=== PATIENT | female | born 1990 | race Caucasian/White ===

== ENCOUNTER → 2020-10-06 | Outpatient (CLI) | payer BC ==
--- NOTE | 2020-10-09 13:48 | USB ---
Reason for exam: clinical finding. Physical Findings: Nurse did not find any significant physical abnormalities on exam. US Breast Limited LT Technologist: Matilda Hammer Left limited breast ultrasound including focal area of concern, retroareolar and axilla demonstrates a 1.1 x 1.0 x 0.3cm benign lymph node at 2 o'clock. These results were verbally communicated with the patient and result sheet given to the patient on 10/06/20. ASSESSMENT: Benign, BI-RAD 2 RECOMMENDATION: Clinical management of the left breast. Manage patient on a clinical basis.
== END | disposition home or self-care (01) ==
LOC: RADUSWWP 09:40
PROVIDERS: ATTEND Obstetrics & Gynecology
DX: N64.4 Mastodynia (principal)

== ENCOUNTER 2021-03-01 12:11 | Emergency (ER) | payer BC ==
[2021-03-01 12:20] VITALS: BP 128/75; PULSE 84; RESP 18; TEMP 98.3
[2021-03-01] MEDS ORDERED: RABIES IMMUNE GLOB 300 UNIT/ML 1 ML VIAL IM ONE (12:52)
[2021-03-01] MEDS ORDERED: RABIES VACCINE (PCEC) 2.5 UNIT KIT IM ONE (12:52)
[2021-03-01] MEDS ORDERED: RABIES IMMUNE GLOB 300 UNIT/ML 5 ML VIAL IM ONE (13:00)
--- NOTE | 2021-03-01 13:27 | ED ---
General Adult HPI - General Chief complaint: Recheck/Abnormal Lab/Rx Stated complaint: InQuicker/Rabies Shot Time Seen by Provider: 03/01/21 12:32 Source: patient Mode of arrival: ambulatory Limitations: no limitations - History of Present Illness Initial comments: 30-year-old female presents for rabies exposure. Patient states that she had at that and her house. No known bites. However she read online she probably should get the rabies vaccine. No other symptoms or complaints.Patient has no other complaints at this time including shortness of breath, chest pain, abdominal pain, nausea or vomiting, headache, or visual changes. - Related Data Allergies Allergy/AdvReac Type Severity Reaction Status Date / Time azithromycin Allergy Rash/Hives Verified 03/01/21 12:20 sulfamethoxazole Allergy Nausea & Verified 03/01/21 12:20 [From Bactrim] Vomiting trimethoprim [From Bactrim] Allergy Nausea & Verified 03/01/21 12:20 Vomiting Review of Systems ROS Statement: Those systems with pertinent positive or pertinent negative responses have been documented in the HPI. ROS Other: All systems not noted in ROS Statement are negative. Past Medical History Past Medical History: No Reported History History of Any Multi-Drug Resistant Organisms: None Reported Past Surgical History: No Surgical Hx Reported Past Psychological History: No Psychological Hx Reported Smoking Status: Vaper Past Alcohol Use History: Occasional Past Drug Use History: None Reported General Exam Limitations: no limitations General appearance: alert Head exam: Present: atraumatic Eye exam: Present: normal appearance, PERRL, EOMI ENT exam: Present: normal exam, mucous membranes moist Neck exam: Present: normal inspection, full ROM. Absent: tenderness Respiratory exam: Present: normal lung sounds bilaterally. Absent: respiratory distress, wheezes Cardiovascular Exam: Present: regular rate, normal rhythm, normal heart sounds Course Vital Signs 03/01/21 12:17 Temperature 98.3 F Pulse Rate 84 Respiratory 18 Rate Blood Pressure 128/75 O2 Sat by Pulse 100 Oximetry Medical Decision Making - Medical Decision Making Patient was given first rabies series here in the emergency room. Will return for further immunizations. Will follow up with primary care. Disposition Clinical Impression: Need for rabies vaccination Disposition: HOME SELF-CARE Condition: Good Instructions (If sedation given, give patient instructions): Rabies Vaccine (ED) Additional Instructions: Please continue your rabies series as directed: 03/04/2021 03/08/2021 03/15/2021 Return to the emergency room for any worsening symptoms. Follow-up with primary care. Is patient prescribed a controlled substance at d/c from ED?: No Referrals: Gloria Kenny MD [Primary Care Provider] - 1-2 days Time of Disposition: 13:25
== END 2021-03-01 13:50 | disposition home or self-care (01) ==
LOC: EC 12:11
DX: F17.290 Nicotine dependence, other tobacco product, uncomplicated (principal); Z20.3 Contact with and (suspected) exposure to rabies; Z23 Encounter for immunization; Z88.1 Allergy status to other antibiotic agents; Z88.2 Allergy status to sulfonamides
CPT/HCPCS: 90375; 90471; 90675; 96372; 99281

== ENCOUNTER 2022-01-29 17:39 | Inpatient (IN) | payer BC ==
[2022-01-29] MEDS ORDERED: CARBOPROST TROMETHAMINE 250 MCG/ML 1 ML AMP IM PRN (18:53)
[2022-01-29] MEDS ORDERED: OXYTOCIN 10 UNIT/ML 1 ML VIAL IM PRN (18:53)
[2022-01-29] MEDS ORDERED: TERBUTALINE 1 MG/ML VIAL SQ PRN (18:53)
[2022-01-29] MEDS ORDERED: METHYLERGONOVINE 0.2 MG/ML 1 ML AMP IM PRN (18:53)
[2022-01-29] MEDS ORDERED: LIDOCAINE 0.5% (PF) 5 MG/ML (50 ML SDV) SQ PRN (18:53)
[2022-01-29] MEDS: LACTATED RINGERS 1,000 ML IV SCH (18:58)
[2022-01-29 19:06] LABS: Basophils # (A) 0.1 k/uL (0-0.2); Basophils % (A) 0 %; Eosinophils # (A) 0.2 k/uL (0-0.7); Eosinophils % (A) 1 %; HCT 34.2 % (34.0-46.0); HGB 11.6 gm/dL (11.4-16.0); Lymphocytes # (A) 2.3 k/uL (1.0-4.8); Lymphocytes % (A) 17 %; MCH 29.3 pg (25.0-35.0); MCHC 34.1 g/dL (31.0-37.0); Mean Platelet Volume 8.3; Monocytes # (A) 0.6 k/uL (0-1.0); Monocytes % (A) 4 %; Neutrophils # (A) 10.3 k/uL (1.3-7.7); Neutrophils % (A) 74 %; Platelet Count 307 k/uL (150-450); RBC 3.97 m/uL (3.80-5.40); RDW 13.1 % (11.5-15.5); WBC 13.8 k/uL (3.8-10.6)
[2022-01-29] MEDS: CALCIUM CARBONATE 500 MG CHEWABLE PO PRN (21:27)
[2022-01-30] MEDS: BUTORPHANOL 1 MG/ML 1 ML VIAL IV PRN ×2 (01:22→03:52)
[2022-01-30] MEDS: LACTATED RINGERS 1,000 ML IV SCH (01:24)
[2022-01-30] MEDS ORDERED: OXYTOCIN 30 UNITS/500 ML NS 30 UNIT in SALINE 1 500ML.BAG IV SCH ×2 (04:00→09:30)
[2022-01-30] MEDS: CALCIUM CARBONATE 500 MG CHEWABLE PO PRN (04:02)
[2022-01-30] MEDS ORDERED: ROPIVACAINE 100 MG, fentaNYL (PF). 200 MCG in SODIUM CHLORIDE 0.9% 76 ML EPIDURAL ONE (06:01)
[2022-01-30] MEDS ORDERED: PENICILLIN G POTASSIUM 5,000,000 UNIT in DEXTROSE 5% IN WATER 100 ML IVPB STA ×2 (06:53)
--- NOTE | 2022-01-30 08:46 | P.HPOB ---
History of Present Illness H&P Date: 01/30/22 Chief Complaint: 39-6/7 weeks, spontaneous rupture of membranes Patient is a 31-year-old 1 para 0 who presented at 39-6/7 weeks with documented spontaneous rupture of membranes of. She presented with her cervix 1 cm dilated, thick, and high. Her was essentially otherwise uncomplicated though she is Rh- and received RhoGAM at 28 weeks and is also known to be rubella nonimmune. She additionally had Covid during the and had reassuring testing weekly after 32 weeks. Group B strep status is negative. On labor and delivery, all signs reassuring with a category 1 heart rate tracing. Overnight she made progress into the active phase of labor and now has an epidural catheter in place and progressed rapidly to complete. Obstetrical history: 1 para 0 with current statistics listed in history present illness. EDC of 01/30/2022 was established by last menstrual period and confirmed by second trimester ultrasound. Laboratory workup demonstrates a blood type of B- with a negative antibody screen. Rubella status is nonimmune the remainder of the laboratory workup was within normal limits. One hour Glucola was within normal limits and group B strep status is negative. Gynecologic history: Unremarkable with no history of any infections to include STDs. Review of Systems Review of systems is confined to history of present illness. Past Medical History Past Medical History: No Reported History History of Any Multi-Drug Resistant Organisms: None Reported Past Surgical History: No Surgical Hx Reported Additional Past Surgical History / Comment(s): cyst removed from tail bone 2016 Past Anesthesia/Blood Transfusion Reactions: Postoperative Nausea & Vomiting (PONV) Past Psychological History: No Psychological Hx Reported Smoking Status: Never smoker Past Alcohol Use History: Occasional Past Drug Use History: None Reported - Past Family History Father History Unknown: Yes Medications and Allergies Home Medications Medication Instructions Recorded Confirmed Type Ferrous Sulfate [Feosol] 325 mg PO DAILY 01/29/22 01/29/22 History Vit No.179/Iron/Folic 1 each PO DAILY 01/29/22 01/29/22 History [ Tablet] Allergies Allergy/AdvReac Type Severity Reaction Status Date / Time azithromycin Allergy Rash/Hives Verified 01/29/22 17:53 sulfamethoxazole Allergy Nausea & Verified 01/29/22 17:53 [From Bactrim] Vomiting trimethoprim [From Bactrim] Allergy Nausea & Verified 01/29/22 17:53 Vomiting Exam Vital Signs Temp Pulse Resp BP Pulse Ox 01/29/22 18:59 97.8 F 96 16 122/78 98 01/29/22 17:59 97.6 F 96 16 122/78 97 Intake and Output 01/29/22 01/30/22 01/30/22 22:59 06:59 14:59 Other: # Voids 5 3 Weight 108.409 kg In general, this is a well-developed, well-nourished white female in no acute distress. Her heart has a regular rhythm and rate without murmur. Her lungs clear to auscultation bilaterally in all jamil. Her abdomen is gravid, nondistended, has normal active bowel sounds, soft, nontender, and without any palpable masses aside from uterine fundus. Her extremities without any cyanosis, clubbing, or edema and are nontender to palpation bilaterally. Digital cervical examination this morning demonstrates her surgery completely dilated with the vertex in presentation at +2 station. Spontaneous rupture of membranes had been documented at the time of admission. Results Result Diagrams: 01/29/22 18:50 Abnormal Lab Results - Last 24 Hours (Table) 01/29/22 Range/Units 18:50 WBC 13.8 H (3.8-10.6) k/uL Neutrophils # 10.3 H (1.3-7.7) k/uL Assessment and Plan (1) Spontaneous rupture of amniotic membranes Current Visit: Yes Status: Acute Code(s): IXW4303 - SNOMED Code(s): 983165368 (2) Active labor at term Current Visit: Yes Status: Acute Code(s): ART7324 - SNOMED Code(s): 46628824 Plan: The patient is admitted for close maternal and surveillance. She initially had no interventions to allow labor to regress on its own. She had Pitocin augmentation begun in the middle of the night and progressed to 3-4 cm meters which time an epidural catheter was placed for analgesia. She has now progressed to complete and has begun pushing. We would anticipate a normal vaginal delivery in the near term. She will continue to have close maternal and surveillance. Antibiotic prophylaxis had been started when she was 3-4 cm as she was approximately 12 hours ruptured.
[2022-01-30] MEDS ORDERED: diphenhydrAMINE 50 MG/ML 1 ML VIAL IVP PRN ×2 (09:20)
[2022-01-30] MEDS ORDERED: ZOLPIDEM 5 MG TAB PO PRN (09:20)
[2022-01-30] MEDS ORDERED: HYDROCORTISONE 2.5% RECTAL CREAM 30 GM TUBE RECTAL PRN (09:20)
[2022-01-30] MEDS ORDERED: SIMETHICONE 80 MG CHEWABLE PO PRN (09:20)
[2022-01-30] MEDS ORDERED: BENZOCAINE/MENTHOL SPRAY 1 GM/SPRAY AEROSOL TOPICAL PRN (09:20)
[2022-01-30] MEDS ORDERED: MEASLES-MUMPS-RUBELLA VACC/PF 12,500 UNIT/0.5 ML VIAL SQ ONE (09:20)
[2022-01-30] MEDS ORDERED: HYDROcodone/APAP 5-325MG 1 EACH TAB PO PRN (09:20)
[2022-01-30] MEDS ORDERED: diphenhydrAMINE 50 MG CAP PO PRN (09:20)
[2022-01-30] MEDS ORDERED: diphenhydrAMINE 25 MG CAP PO PRN (09:20)
[2022-01-30] MEDS ORDERED: LANOLIN CREAM 5 GM TUBE TOPICAL PRN (09:20)
[2022-01-30] MEDS ORDERED: HYDROcodone/APAP 7.5-325MG 1 EACH TAB PO PRN (09:20)
--- NOTE | 2022-01-30 09:23 | P.PROBDLV ---
Vaginal Delivery Note - . Vaginal Delivery Note: The patient is a 31-year-old 1 para 0 admitted at 39-6/7 weeks, now 40- 0/7 weeks by good dating parameters. She is admitted with documented spontaneous rupture of membranes in early labor. On labor and delivery, all signs are reassuring with a category 1 heart rate tracing. She had no intervention for the first 6-8 hours at which time she had Pitocin augmentation started. She then progressed to approximate 3-4 cm this morning at which time an epidural catheter was placed for analgesia. She then progressed very rapidly from 4 cm to complete over the course of approximately 1-1/2 hours. She pushed over the course of approximately 15-20 minutes to a normal spontaneous vaginal delivery of a viable 6 lbs. 9 oz. baby girl with Apgars of 9 at 1 minute and 9 at 5 minutes delivered in the left occiput anterior position. The placenta was delivered spontaneously, intact, and grossly normal with a grossly normal three- vessel cord inserted proximally 47 m from the margin of the placental disc. There was a fairly significant left vaginal sulcus tear extending into the left labia which was repaired in standard fashion using 3-0 chromic catgut without difficulty. All sponge, instrument, and needle counts were correct. Estimated blood loss for the case was approximate 400 mL. There were no complications. All sponge, instrument, and needle counts were correct. Both mother and are resting comfortably in recovery.
[2022-01-30] MEDS: IBUPROFEN 600 MG TAB PO PRN ×2 (10:05→16:11)
[2022-01-30] MEDS ORDERED: PENICILLIN G POTASSIUM 2,500,000 UNIT in DEXTROSE 5% IN WATER 100 ML IVPB SCH ×2 (11:00)
[2022-01-30] MEDS: ACETAMINOPHEN TAB 325 MG TAB PO PRN (20:18)
[2022-01-30] MEDS: SENNOSIDES-DOCUSATE SODIUM 1 EACH TAB PO SCH (20:19)
[2022-01-31] MEDS: IBUPROFEN 600 MG TAB PO PRN ×4 (01:06→20:12)
[2022-01-31] MEDS: ACETAMINOPHEN TAB 325 MG TAB PO PRN ×3 (05:26→18:29)
[2022-01-31 06:28] LABS: Basophils # (A) 0.1 k/uL (0-0.2); Basophils % (A) 0 %; Eosinophils # (A) 0.2 k/uL (0-0.7); Eosinophils % (A) 2 %; HCT 24.5 % (34.0-46.0); Lymphocytes # (A) 2.6 k/uL (1.0-4.8); Lymphocytes % (A) 20 %; MCH 27.5 pg (25.0-35.0); MCHC 31.7 g/dL (31.0-37.0); Mean Platelet Volume 8.7; Monocytes # (A) 0.7 k/uL (0-1.0); Monocytes % (A) 5 %; Neutrophils # (A) 9.2 k/uL (1.3-7.7); Neutrophils % (A) 71 %; Platelet Count 232 k/uL (150-450); RBC 2.82 m/uL (3.80-5.40); RDW 13.1 % (11.5-15.5); WBC 13.1 k/uL (3.8-10.6)
[2022-01-31 06:43] LABS: HGB 7.8 gm/dL (11.4-16.0)
[2022-01-31] MEDS: SENNOSIDES-DOCUSATE SODIUM 1 EACH TAB PO SCH ×2 (07:44→20:13)
[2022-01-31 08:01] VITALS: RESP 18
--- NOTE | 2022-01-31 08:23 | P.PNOBGVD ---
Subjective - Subjective Principal diagnosis: day 1 Interval history: Ambulating and voiding without difficulty. Having some discomfort on vaginally but improved from yesterday. Patient reports: Reports appetite normal, Reports voiding normally, Reports ambulating normally, Denies pain well controlled : doing well Objective - Latest Vital Signs Latest vital signs: Vital Signs Temp Pulse Resp BP Pulse Ox 01/31/22 07:45 97.9 F 79 18 104/54 98 01/31/22 00:00 98.5 F 89 16 113/61 97 01/30/22 20:00 98.0 F 70 16 110/70 97 01/30/22 16:00 98.2 F 87 16 122/58 01/30/22 11:20 102 H 16 127/59 01/30/22 10:50 98.3 F 110 H 15 135/70 01/30/22 10:20 93 16 119/64 01/30/22 10:05 97 16 117/60 01/30/22 09:50 98 15 123/64 01/30/22 09:35 113 H 17 126/60 01/30/22 09:20 118 H 16 143/74 Intake and Output 01/30/22 01/31/22 01/31/22 22:59 06:59 14:59 Other: Voiding Method Toilet - Exam Extremities: Present: normal. Absent: edema Abdomen: Present: normal appearance, soft. Absent: tenderness Uterus: Present: normal, firm. Absent: tenderness - Labs Labs: Abnormal Lab Results - Last 24 Hours (Table) 01/31/22 Range/Units 06:03 WBC 13.1 H (3.8-10.6) k/uL RBC 2.82 L (3.80-5.40) m/uL Hgb 7.8 L D (11.4-16.0) gm/dL Hct 24.5 L (34.0-46.0) % Neutrophils # 9.2 H (1.3-7.7) k/uL Assessment and Plan (1) Active labor at term Current Visit: Yes Status: Acute Code(s): OSK7921 - SNOMED Code(s): 98155711 (2) Rh negative status during Current Visit: Yes Status: Acute Code(s): O26.899 - OTH RELATED CONDITIONS, UNSPECIFIED TRIMESTER; Z67.91 - UNSPECIFIED BLOOD TYPE, RH NEGATIVE SNOMED Code(s): 004591347 (3) Rubella non-immune status, antepartum Current Visit: Yes Status: Acute Code(s): O09.899 - SUPERVISION OF OTHER HIGH RISK PREGNANCIES, UNSP TRIMESTER; Z28.39 - OTHER UNDERIMMUNIZATION STATUS SNOMED Code(s): 704609556 (4) Spontaneous rupture of amniotic membranes Current Visit: Yes Status: Acute Code(s): OUX0625 - SNOMED Code(s): 446703402 (5) Normal spontaneous vaginal delivery Current Visit: Yes Status: Acute Code(s): O80 - ENCOUNTER FOR FULL-TERM UNCOMPLICATED DELIVERY SNOMED Code(s): 54594987 (6) Laceration of vaginal wall or sulcus without perineal laceration during delivery Current Visit: Yes Status: Acute Code(s): O71.4 - OBSTETRIC HIGH VAGINAL LACERATION ALONE SNOMED Code(s): 659625409 (7) Acute anemia Current Visit: Yes Status: Acute Code(s): D64.9 - ANEMIA, UNSPECIFIED SNOMED Code(s): 862243486 Plan: day 1 status post normal spontaneous vaginal delivery with large vaginal laceration. Her hemoglobin is 7.8 this morning however she is having no ongoing active bleeding and is asymptomatic. Plan is for discharge home after 48 hours as the 's blood cultures are still pending at this time. Routine care.
[2022-01-31] MEDS: FERROUS SULFATE 325 MG TAB PO SCH (18:29)
[2022-02-01 00:56] VITALS: PULSE 94
[2022-02-01] MEDS: IBUPROFEN 600 MG TAB PO PRN ×2 (01:20→09:01)
[2022-02-01] MEDS: SENNOSIDES-DOCUSATE SODIUM 1 EACH TAB PO SCH (09:01)
[2022-02-01] MEDS: FERROUS SULFATE 325 MG TAB PO SCH (09:01)
[2022-02-01 09:32] VITALS: BP 96/51; TEMP 98.3
== END 2022-02-01 13:24 | disposition home or self-care (01) | DRG 807 ==
LOC: FBPOP 17:39 → 4FBP 18:24
PROVIDERS: ADMIT Obstetrics & Gynecology; ATTEND Obstetrics & Gynecology
PROC: 10E0XZZ Delivery of Products of Conception, External Approach (ICD-10-PCS; principal; 2022-01-30)
PROC: 0HQ9XZZ Repair Perineum Skin, External Approach (ICD-10-PCS; 2022-01-30)
PROC: 3E0S3BZ Introduction of Anesthetic Agent into Epidural Space, Percutaneous Approach (ICD-10-PCS; 2022-01-30)
PROC: 00HU33Z Insertion of Infusion Device into Spinal Canal, Percutaneous Approach (ICD-10-PCS; 2022-01-30)
DX: O26.893 Other specified pregnancy related conditions, third trimester (principal); Z37.0 Single live birth; Z67.21 Type B blood, Rh negative; Z3A.39 39 weeks gestation of pregnancy; O99.02 Anemia complicating childbirth; Z28.39 Other underimmunization status; D64.9 Anemia, unspecified; O71.4 Obstetric high vaginal laceration alone
CPT/HCPCS: 59025; 84112; 85025; 86850; 86900; 86901; 90707; 99213

== ENCOUNTER 2025-01-17 19:00 | Inpatient (IN) | payer BC ==
[2025-01-17] MEDS: DINOPROSTONE 10 MG INSERT.ER VAGINAL ONE (19:47)
[2025-01-17] MEDS ORDERED: BUTORPHANOL 1 MG/ML 1 ML VIAL IV PRN (19:58)
--- NOTE | 2025-01-17 19:58 | P.HPOB ---
History of Present Illness H&P Date: 01/17/25 Chief Complaint: 37-0/7 weeks, oligohydramnios, induction The patient is a 34-year-old 2 para 1-0-0-1 admitted at 37-0/7 weeks as established by last menstrual period and confirmed by 12-week ultrasound. She is admitted for induction of labor secondary to a diagnosis of oligohydramnios diagnosed last week with an amniotic fluid index today of 6 cm. Her has been otherwise uncomplicated. She is Rh- and received RhoGAM at 28 weeks. On labor and delivery, all signs are reassuring with a category 1 heart rate tracing. She is admitted for Cervidil cervical ripening and subsequent Pitocin induction. Group B strep status is negative. Obstetrical history: 2 para 1-0-0-1 with 1 term vaginal delivery without complications. Current statistics are listed in history of present illness. EDC of 02/07/2025 was established by last menstrual period and confirmed by 12-week ultrasound. Laboratory workup demonstrates a blood type of B- with a negative antibody screen. Rubella status is immune. The remainder of the laboratory workup was within normal limits. She did undergo fraction testing which was negative for trisomy. 1 hour Glucola was normal and group B strep status is negative. Gynecologic history: Unremarkable with no history of any infections to include STDs. Review of Systems Review of systems is confined to history of present illness. Past Medical History Past Medical History: No Reported History History of Any Multi-Drug Resistant Organisms: None Reported Past Surgical History: No Surgical Hx Reported Additional Past Surgical History / Comment(s): cyst removed from tail bone 2016, leg cyst removal 2009 Past Anesthesia/Blood Transfusion Reactions: Postoperative Nausea & Vomiting (PONV) Past Psychological History: No Psychological Hx Reported Smoking Status: Never smoker Past Alcohol Use History: Occasional Past Drug Use History: None Reported - Past Family History Father History Unknown: Yes Family Medical History: No Reported History Mother Family Medical History: Diabetes Mellitus Medications and Allergies Home Medications Medication Instructions Recorded Confirmed Type Vit No.179/Iron/Folic 1 each PO DAILY 01/29/22 01/17/25 History [ Tablet] Omeprazole [PriLOSEC] 10 mg PO DAILY 01/17/25 01/17/25 History RX: Magnesium 200 mg PO DAILY 01/17/25 01/17/25 History Allergies Allergy/AdvReac Type Severity Reaction Status Date / Time azithromycin Allergy Rash/Hives Verified 01/17/25 19:08 sulfamethoxazole Allergy Nausea & Verified 01/17/25 19:08 [From Bactrim] Vomiting trimethoprim [From Bactrim] Allergy Nausea & Verified 01/17/25 19:08 Vomiting Exam Vital Signs Temp Pulse Resp BP Pulse Ox 01/17/25 19:27 97.5 F L 88 18 128/66 98 Intake and Output 01/17/25 01/17/25 01/17/25 06:59 14:59 22:59 Other: Weight 102.965 kg In general, this is a well-developed, well-nourished white female in no acute distress. Her heart has a regular rhythm and rate without murmur. Her lungs are clear to auscultation bilaterally in all jamil. Her abdomen is gravid, nondistended, has normal active bowel sounds, is soft, nontender, and without any palpable masses aside from the uterine fundus. Her extremities are without any cyanosis, clubbing, or edema and are nontender to palpation bilaterally. Digital cervical examination demonstrates of cervix to be 1 cm dilated, 50% effaced, with the vertex and presentation at -2 station. The cervix is extremely posterior in nature at this time. Assessment and Plan (1) Oligohydramnios Current Visit: Yes Status: Acute Code(s): O41.00X0 - OLIGOHYDRAMNIOS, UNSP TRIMESTER, NOT APPLICABLE OR UNSP SNOMED Code(s): 14969463 (2) Term Current Visit: Yes Status: Acute Code(s): Z34.90 - ENCNTR FOR SUPRVSN OF NORMAL , UNSP, UNSP TRIMESTER SNOMED Code(s): 26344350 Plan: The patient was admitted for Cervidil cervical ripening with subsequent Pitocin induction should be necessary. Cervidil has been placed in the posterior fornix per protocol. She will have close maternal and surveillance and expectant management will be practiced. She is a good candidate for either IV or epidural analgesia, whichever she may choose.
[2025-01-18] MEDS ORDERED: OXYTOCIN 10 UNIT/ML 1 ML VIAL IM PRN (06:00)
[2025-01-18] MEDS ORDERED: TRANEXAMIC 1,000 MG/100ML-NACL 1,000 MG in EMPTY BAG 1 BAG IV PRN (06:00)
[2025-01-18] MEDS ORDERED: TERBUTALINE 1 MG/ML VIAL SQ PRN (06:00)
[2025-01-18] MEDS ORDERED: METHYLERGONOVINE 0.2 MG/ML 1 ML AMP IM PRN (06:00)
[2025-01-18] MEDS ORDERED: OXYTOCIN 30 UNITS/500 ML NS 30 UNIT in SALINE 1 500ML.BAG IV SCH (06:00)
[2025-01-18] MEDS ORDERED: LIDOCAINE 0.5% (PF) 5 MG/ML (50 ML SDV) SQ PRN (06:00)
[2025-01-18] MEDS ORDERED: CARBOPROST TROMETHAMINE 250 MCG/ML 1 ML AMP IM PRN (06:00)
[2025-01-18] MEDS: LACTATED RINGERS 1,000 ML IV SCH (06:14)
[2025-01-18] MEDS: OXYTOCIN 30 UNITS/500 ML NS 30 UNIT in SALINE 1 500ML.BAG IV SCH (06:15)
[2025-01-18 06:36] LABS: Basophils # (A) 0.05 10*3/uL (0.00-0.10); Basophils % (A) 0.5 %; Eosinophils # (A) 0.15 10*3/uL (0.04-0.35); Eosinophils % (A) 1.4 %; HCT 30.0 % (37.2-46.3); HGB 9.8 g/dL (12.0-15.0); Lymphocytes # (A) 2.49 10*3/uL (0.90-5.00); Lymphocytes % (A) 23.1 %; MCH 27.4 pg (27.0-32.0); MCHC 32.7 g/dL (32.0-37.0); MCV 83.8 fL (80.0-97.0); Monocytes # (A) 0.92 10*3/uL (0.20-1.00); Monocytes % (A) 8.5 %; Neutrophils # (A) 7.01 10*3/uL (1.80-7.70); Neutrophils % (A) 65.1 %; Platelet Count 263 10*3/uL (140-440); RBC 3.58 10*6/uL (4.10-5.20); RDW 12.7 % (11.5-14.5); WBC 10.77 10*3/uL (4.50-10.00)
--- NOTE | 2025-01-18 08:49 | P.PN ---
Subjective Progress Note Date: 01/18/25 Principal diagnosis: 37+ weeks, oligohydramnios, induction Patient reports she was relatively comfortable overnight and is feeling more crampy this morning. Objective - Vital Signs Vital signs: Vital Signs Temp 97.5 F L 01/17/25 19:27 Pulse 88 01/17/25 19:27 Resp 18 01/17/25 19:27 BP 128/66 01/17/25 19:27 Pulse Ox 98 01/17/25 19:27 FiO2 Intake & Output 01/17/25 01/18/25 01/18/25 18:59 06:59 18:59 Weight 102.965 kg - Exam Digital cervical examination demonstrates the patient cervix to be approximately 2 cm dilated, 70% effaced, the vertex and presentation at -2 station. Artificial rupture of membranes is carried out demonstrating clear fluid. - Labs CBC & Chem 7: 01/18/25 06:05 Labs: Abnormal Lab Results - Last 24 Hours (Table) 01/18/25 Range/Units 06:05 WBC 10.77 H (4.50-10.00) 10*3/uL RBC 3.58 L (4.10-5.20) 10*6/uL Hgb 9.8 L (12.0-15.0) g/dL Hct 30.0 L (37.2-46.3) % Immature Gran # 0.15 H (0.00-0.04) 10*3/uL Assessment and Plan (1) Oligohydramnios Current Visit: Yes Status: Acute Code(s): O41.00X0 - OLIGOHYDRAMNIOS, UNSP TRIMESTER, NOT APPLICABLE OR UNSP SNOMED Code(s): 70766741 (2) Term Current Visit: Yes Status: Acute Code(s): Z34.90 - ENCNTR FOR SUPRVSN OF NORMAL , UNSP, UNSP TRIMESTER SNOMED Code(s): 12014644 Plan: Pitocin augmentation has been started. She will have close maternal and s urveillance and expectant management will be practiced. She is a good candidate for either IV or epidural analgesia, ever she may choose.
[2025-01-18] MEDS ORDERED: fentaNYL (PF) 50 MCG/ML 5 ML AMP ONE (13:22)
[2025-01-18] MEDS ORDERED: SODIUM CHLORIDE 0.9% 250 ML BAG ONE (13:22)
[2025-01-18] MEDS ORDERED: ROPIVACAINE 5 MG/ML 30 ML VIAL ONE (13:22)
[2025-01-18] MEDS: ACETAMINOPHEN TAB 500 MG TAB PO STA (17:22)
[2025-01-18] MEDS ORDERED: ZOLPIDEM 5 MG TAB PO PRN (21:01)
[2025-01-18] MEDS ORDERED: diphenhydrAMINE 25 MG CAP PO PRN (21:01)
[2025-01-18] MEDS ORDERED: BENZOCAINE/MENTHOL SPRAY 1 GM/SPRAY AEROSOL TOPICAL PRN (21:01)
[2025-01-18] MEDS ORDERED: diphenhydrAMINE 50 MG/ML 1 ML VIAL IVP PRN ×2 (21:01)
[2025-01-18] MEDS ORDERED: HYDROCORTISONE 2.5% RECTAL CREAM 30 GM TUBE RECTAL PRN (21:01)
[2025-01-18] MEDS ORDERED: LANOLIN CREAM 1 GM TUBE TOPICAL PRN (21:01)
[2025-01-18] MEDS ORDERED: SIMETHICONE 80 MG CHEWABLE PO PRN (21:01)
--- NOTE | 2025-01-18 21:05 | P.PROBDLV ---
Vaginal Delivery Note - . Vaginal Delivery Note: Date of service/delivery: 01/18/2025 The patient is a 34-year-old 2 para 1-0-0-1 admitted at 37-0/7 weeks for Cervidil cervical ripening prior to Pitocin induction secondary to a diagnosis of oligohydramnios with an SALIMA of 6.0 cm. Her has otherwise been uncomplicated though she is Rh- and received RhoGAM at 28 weeks. Group B strep status is negative. On labor and delivery, all signs are reassuring with a category 1 heart rate tracing. She had Cervidil placed last night which affected enough cervical change that she was able to undergo artificial rupture of membranes this morning after Pitocin augmentation had been started. She made progress to the active phase of labor and had an epidural catheter placed for analgesia. She then progressed steadily throughout the day and ultimately reached complete dilation. She pushed over the course of 2 contractions to a normal spontaneous vaginal delivery of a viable 5 pound 8 ounce baby girl with Apgars of 8 at 1 minute and 9 at 5 minutes delivered in the right occiput anterior position. The placenta was delivered spontaneously, intact, and grossly normal with a grossly normal three-vessel cord inserted approximately 2 to 3 cm from the margin of the placental disc. There was a small first-degree perineal laceration which was repaired with a single [id number] stitch of 3-0 chromic catgut without difficulty. Estimated blood loss for the case was approximately 100 mL. There were no complications. All sponge, instrument, and needle counts were correct. Both mother and are resting comfortably in recovery.
[2025-01-18] MEDS: IBUPROFEN 800 MG TAB PO PRN (21:49)
[2025-01-19] MEDS: Rhogam IMMUNE GLOBULIN 1,500 UNIT/1 ML IM ONE (03:37)
[2025-01-19 06:48] LABS: Basophils # (A) 0.07 10*3/uL (0.00-0.10); Basophils % (A) 0.5 %; Eosinophils # (A) 0.12 10*3/uL (0.04-0.35); Eosinophils % (A) 0.9 %; HCT 26.9 % (37.2-46.3); HGB 8.8 g/dL (12.0-15.0); Lymphocytes # (A) 2.16 10*3/uL (0.90-5.00); Lymphocytes % (A) 15.4 %; MCH 27.6 pg (27.0-32.0); MCHC 32.7 g/dL (32.0-37.0); MCV 84.3 fL (80.0-97.0); Monocytes # (A) 1.20 10*3/uL (0.20-1.00); Monocytes % (A) 8.6 %; Neutrophils # (A) 10.36 10*3/uL (1.80-7.70); Neutrophils % (A) 73.9 %; Platelet Count 246 10*3/uL (140-440); RBC 3.19 10*6/uL (4.10-5.20); RDW 12.6 % (11.5-14.5); WBC 14.01 10*3/uL (4.50-10.00)
[2025-01-19] MEDS: SENNOSIDES-DOCUSATE SODIUM 1 EACH TAB PO SCH (07:59)
[2025-01-19] MEDS: ACETAMINOPHEN TAB 500 MG TAB PO PRN (07:59)
--- NOTE | 2025-01-19 08:50 | P.DS ---
Providers Date of admission: 01/17/25 19:00 Expected date of discharge: 01/19/25 Attending physician: Burke Bloom Primary care physician: Burke Bloom - Discharge Diagnosis(es) (1) Oligohydramnios Current Visit: Yes Status: Acute (2) Term Current Visit: Yes Status: Acute (3) Normal spontaneous vaginal delivery Current Visit: No Status: Acute Hospital Course: The patient is a 34-year-old 2 para 1-0-0-1 admitted at 37-0/7 weeks by good dating parameters. She is admitted for Cervidil cervical ripening to be followed by Pitocin induction for diagnosis of oligohydramnios. She is Rh- and received RhoGAM at 28 weeks but otherwise had an uncomplicated . On labor delivery, all signs are reassuring with a category 1 heart rate tracing. She had Cervidil placed which did not affect enough change of her cervix overnight to allow for artificial rupture of membranes in the morning shortly after the time of Pitocin augmentation. Clear fluid was noted. She made progress to the active phase and had an epidural catheter placed. She then progressed ultimately to complete and pushed quickly to a normal spontaneous vaginal delivery of a viable 5 pound 8 ounce baby girl with Apgars of 8 at 1 minute and 9 at 5 minutes. Her course was unremarkable with vital signs remaining stable and her temperature was afebrile throughout. She was deemed stable for discharge on day #1 and was discharged home to follow-up in the office in 6 weeks time routinely. Discharge instructions included calling for any significantly increased bleeding or foul-smelling lochia, significantly increased fever abdominal pain, perineal complaints, breast complaints, or anything else that concerned her. She was additionally instructed to have nothing in the vagina for at least 6 weeks time to include intercourse. She understood her instructions and agrees to follow-up as noted above. Discharge medications included continued vitamins as she has opted to breast-feed. She was otherwise to use [id number] analgesic pain medications as needed. Maternal blood type is B- and cord blood was sent for evaluation for the necessity of RhoGAM. Rubella status is immune. Procedures: #1. Cervidil cervical ripening #2. Pitocin augmentation #3. Artificial rupture of membranes #4. Epidural analgesia #5. Normal spontaneous vaginal delivery #6. Repair of perineal laceration Patient Condition at Discharge: Stable Plan - Discharge Summary New Discharge Prescriptions: No Action Omeprazole [PriLOSEC] 10 mg PO DAILY Vit No.179/Iron/Folic [ Tablet] 1 each PO DAILY Magnesium 200 mg PO DAILY Discharge Medication List Vit No.179/Iron/Folic [ Tablet] 1 each PO DAILY 01/29/22 [History] Magnesium 200 mg PO DAILY 01/17/25 [History] Omeprazole [PriLOSEC] 10 mg PO DAILY 01/17/25 [History] Follow up Appointment(s)/Referral(s): Burke Bloom MD [Primary Care Provider] - 02/28/25 1:15 pm Discharge Disposition: HOME SELF-CARE
[2025-01-19 15:55] VITALS: BP 133/73; PULSE 74; RESP 16; TEMP 98.3
== END 2025-01-19 21:30 | disposition home or self-care (01) | DRG 807 ==
LOC: 4FBP 19:00
PROVIDERS: ADMIT Obstetrics & Gynecology; ATTEND Obstetrics & Gynecology
PROC: 3E0P7VZ Introduction of Hormone into Female Reproductive, Via Natural or Artificial Opening (ICD-10-PCS; principal; 2025-01-17)
PROC: 0HQ9XZZ Repair Perineum Skin, External Approach (ICD-10-PCS; 2025-01-18)
PROC: 10E0XZZ Delivery of Products of Conception, External Approach (ICD-10-PCS; 2025-01-18)
PROC: 10907ZC Drainage of Amniotic Fluid, Therapeutic from Products of Conception, Via Natural or Artificial Opening (ICD-10-PCS; 2025-01-18)
PROC: 3E0234Z Introduction of Serum, Toxoid and Vaccine into Muscle, Percutaneous Approach (ICD-10-PCS; 2025-01-19)
DX: O41.03X0 Oligohydramnios, third trimester, not applicable or unspecified (principal); O26.893 Other specified pregnancy related conditions, third trimester; O70.0 First degree perineal laceration during delivery; Z67.21 Type B blood, Rh negative; Z79.899 Other long term (current) drug therapy; Z88.1 Allergy status to other antibiotic agents; Z88.2 Allergy status to sulfonamides; Z3A.37 37 weeks gestation of pregnancy; Z37.0 Single live birth
CPT/HCPCS: 85025; 85461; 86850; 86870; 86900; 86901